=== PATIENT | male | born 1955 | race Caucasian/White ===

== ENCOUNTER → 2016-10-10 | Outpatient (CLI) | payer BC ==
[~2016-10-10] MED LIST: ACET-1138 PO; ASPEC81 PO; ASPI81TA28 PO; CALC0.02 TOP; CHOL100010 PO; CLB200 PO; CLC100 PO; IBUP-1050 PO; LIDOCAINE 5% TOP; MACUHEALTH PO; MULT-506 PO; MULT-920 PO; NASAL SPRAY NAE; OXYSR10 PO; RXC5 PO; SIMV40TA2 PO; VOLTAREN GEL TOP; [UNRECOGNIZED DRUG - CODE] TOP; [UNRECOGNIZED DRUG - OTHER] TOP; [UNRECOGNIZED DRUG - OTHER] TOP
--- NOTE | 2016-10-10 15:08 | DIAGNOSTIC IMAGING REPORT ---
CT UPPER EXTREMITY WITHOUT CT DOSE: 864.50 mGy.cm CLINICAL HISTORY: RT SHOULDER PAIN TECHNIQUE: Helical images were acquired in the transverse plane. Sagittal and coronal reformatted images were acquired. COMPARISON STUDY: None. FINDINGS: There are advanced osteoarthritic changes present within the right shoulder. There is marked narrowing of the glenohumeral joint. There are prominent osteophytes present. There are multiple subchondral cysts present. There is a dominant 23 mm cyst located within the superior lateral margin of the humeral head. No acute fractures are visualized. There are no subluxations. There is a 2.5 mm right apical pulmonary nodule, finding of doubtful clinical significance. There is no pathologic adenopathy. There is a [id number] joint effusion. IMPRESSION: 1. Advanced osteoarthritic change with marked joint space narrowing, prominent osteophytes, and subchondral cyst formation. There is also a small amount of joint effusion 2. No acute fractures. Electronically signed by: Pedro Mercado M.D. 10/10/2016 3:07 PM Dictated Date/Time: 10/10/2016 3:00 PM
== END | disposition home or self-care (01) ==
LOC: C.CTS 14:35
PROVIDERS: ATTEND Orthopaedic Surgery
DX: M19.011 Primary osteoarthritis, right shoulder (principal); M25.511 Pain in right shoulder

== ENCOUNTER 2016-11-01 09:04 | Inpatient (IN) | payer BC ==
[2016-10-10 13:16] VITALS: BMI 29.0
--- NOTE | 2016-10-10 13:58 | PAT Medication Instructions ---
Service Date Oct 10, 2016. Current Home Medication List Aspirin (Aspirin Ec), 81 MG PO Q2D Calcipotriene-Betamethasone Di (Calcipotriene/Betamethaso 0.005-0.064 %), 1 DOSE TOP PRN Cholecalciferol (Vitamin D), 1,000 INTER.UNIT PO QAM Ibuprofen (Advil), 200 MG PO BID Multivitamin (Multivitamin), 1 TAB PO QAM Simvastatin (Zocor), 40 MG PO HS [Lidocaine 5 %], 1 DOSE TOP PRN [[facility]], 1 TAB PO QPM [Nasal [place]], 1 DOSE ELYSE PRN [Topical Cr], 1 DOSE TOP PRN [Voltaren Gel], 1 DOSE TOP PRN Medication Instructions For Your Scheduled Surgery - Hold the following medications 7 days prior to surgery per surgeon's instructions: Ibuprofen (Advil), 200 MG PO BID Aspirin (Aspirin Ec), 81 MG PO Q2D - Hold the following medications 24 hours prior to surgery: Calcipotriene-Betamethasone Di (Calcipotriene/Betamethaso 0.005-0.064 %), 1 DOSE TOP PRN [Voltaren Gel], 1 DOSE TOP PRN [Lidocaine 5 %], 1 DOSE TOP PRN [Topical Cr], 1 DOSE TOP PRN - Hold the following medications the morning of surgery: Cholecalciferol (Vitamin D), 1,000 INTER.UNIT PO QAM Multivitamin (Multivitamin), 1 TAB PO QAM - Take the following medications the morning of surgery if needed: [Nasal [place]], 1 DOSE ELYSE PRN - Take the following medications as scheduled the night before surgery: Simvastatin (Zocor), 40 MG PO HS [[facility]], 1 TAB PO QPM Nothing to eat or drink after midnight If you have any questions please call us at [phone] or [phone] or [phone]
[2016-10-10 14:33] LABS: BASO % 0.1 %; BASO ABS # 0.01 K/uL (0-0.2); COMPLETE YES; EOS % 0.9 %; HEMATOCRIT 50.5 % (42-52); IG% 0.3 %; LYMPH % 34.4 %; MEAN CELL VOLUME 88.4 fL (80-100); MEAN CORPUSCULAR HEMOGLOBIN 27.8 pg (25-34); MEAN CORPUSCULAR HGB CONC 31.5 g/dl (32-36); MEAN PLATELET VOLUME 10.4 fL (7.4-10.4); MONO % 5.4 %; NEUT % 58.9 %; PLATELET COUNT 195 K/uL (130-400); RED BLOOD COUNT 5.71 M/uL (4.7-6.1); WHITE BLOOD COUNT 7.84 K/uL (4.8-10.8)
[2016-10-10 14:41] LABS: PROTHROMBIN TIME (PATIENT) 10.3 SECONDS (9.0-12.0)
[2016-10-10 14:49] LABS: URINE APPEARANCE CLEAR (CLEAR); URINE BILIRUBIN NEG (NEG); URINE COLOR DK YELLOW; URINE NITRITE NEG (NEG); URINE PH 5.5 (4.5-7.5); URINE SPECIFIC GRAVITY 1.028 (1.000-1.030); UROBILINOGEN NEG (NEG)
[2016-10-10 14:57] LABS: MANUAL MICROSCOPIC REQUIRED? NO; REVIEW REQ? NO
--- NOTE | 2016-10-10 15:05 | DIAGNOSTIC IMAGING REPORT ---
CHEST PREADMISSION(PA/LAT) CLINICAL HISTORY: Preoperative evaluation. COMPARISON STUDY: Chest radiograph August 22, 2015. FINDINGS: Lung volumes are normal. There is no pneumothorax or pleural effusion. Pulmonary vascularity is normal. Minimal opacity along the left heart border suggest atelectasis or epicardial fat pad. This is unchanged. Severe osteoarthritis of the right glenohumeral joint is noted. IMPRESSION: No acute cardiopulmonary findings. Electronically signed by: Melquiades Toussaint M.D. 10/10/2016 3:04 PM Dictated Date/Time: 10/10/2016 2:38 PM
[2016-10-10 15:51] LABS: BUN/CREATININE RATIO 17.6 (10-20); CALCIUM 9.1 mg/dl (8.5-10.1); CREATININE 0.92 mg/dl (0.60-1.40); POTASSIUM 4.9 mmol/L (3.5-5.1)
[2016-10-11 05:49] LABS: ESTIMATED AVERAGE GLUCOSE 134 mg/dl; HA1C FLAG Normal (Normal)
--- NOTE | 2016-10-28 11:29 | HISTORY & PHYSICAL EXAMINATION ---
DATE OF ADMISSION: 11/01/2016 SUBJECTIVE AND CHIEF COMPLAINT: Right shoulder pain. HISTORY OF PRESENT ILLNESS: The patient is a 61-year-old male who complains of right shoulder pain. States that the symptoms have been chronic and nontraumatic in nature. He describes them as aching, sharp and throbbing. He has been previously treated with cortisone injections with no relief. He has had no success with physical therapy. He would like to proceed with a surgical procedure. PAST MEDICAL HISTORY: Significant for hypercholesterolemia and osteoarthritis. PAST SURGICAL HISTORY: Left TKA, right TKA, tonsillectomy, adenoidectomy. SOCIAL HISTORY: Denies alcohol use. Denies smoking or tobacco use. Denies IV or illegal drug use. He lives in a 2-story house. 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 FAMILY HISTORY: Noncontributory. ALLERGIES: No known drug allergies. MEDICATIONS: Voltaren 1% gel as directed; Advil 200 mg 1 tablet in the morning and 1 tablet at night; lidocaine 5% extended patch use for painful area on the shoulder, on for 12 hours and off for 12 hours 1 patch per day; albuterol 2 puffs every 6 hours as needed; vitamin D3 1000 units 1 tab daily; aspirin 81 mg 1 tab every other day; simvastatin 40 mg 1 tab at bedtime. REVIEW OF SYSTEMS: He denies headaches, fevers, chills, double vision, blurry vision, sore throat, cough, chest pain, nausea, vomiting, diarrhea, constipation, numbness, tingling, tired, urinary difficulties, thoughts of harming himself or harming others, or depression. He is positive for joint pain and joint stiffness of the right shoulder. OBJECTIVE: GENERAL APPEARANCE: The patient is a 61-year-old male, sitting, in no acute distress. He is well dressed, well nourished. He is awake, alert and oriented x3. VITAL SIGNS: He is 5 feet 10 inches tall, 202 pounds. Blood pressure is 138/84. HEENT: Normocephalic, atraumatic. Extraocular movements are intact. PERRLA. Mucosa is moist. No septal deviation. NECK: Supple with no lymphadenopathy, no JVD, no thyromegaly. HEART: Regular rate and rhythm with no murmurs or gallops. LUNGS: Clear to auscultation. No wheezing or rhonchi. ABDOMEN: Soft, nontender, nondistended. Normal bowel sounds. No hepatosplenomegaly. EXTREMITIES: Paying particular attention to the right upper extremity, he is able to actively flex 0-120 degrees, abduct 0-90 degrees, externally rotate 0-20 degrees. Crepitus is felt along the shoulder joint through his range of motion and he has pain at terminal end range of motion. NEUROLOGIC: Cranial nerves II-XII are intact. Pulses are compared bilaterally and are equal. IMAGING: X-rays of the right shoulder demonstrated [id number] of the glenohumeral joint with osteophyte formation. IMPRESSION: Right shoulder arthritis [id number] with significant medialization and posterior wear. PLAN: The patient is scheduled for a right TSA versus reverse TSA with possible augmentation of the glenoid. The patient has failed conservative therapies of cortisone injections and physical therapy. This affects his activities of daily living. He would like to proceed with the surgical procedure. The patient will be scheduled for a TSA versus reverse with possible augmentation of the glenoid. Risks and benefits to the surgery were discussed which included but not limited to DVT, pain, stiffness, need for revision surgeries, damage to blood vessels, damage to nerves, PE, , and anesthesia risks were all discussed with the patient and he wishes to proceed. All questions were answered to his satisfaction. DVT prophylaxis is nonapplicable, and on discharge, he would like to go home with outpatient physical therapy. PILO
[~2016-11-01] VITALS: Ht 177.8 cm; Wt 92.5 kg
[2016-11-01] VITALS (9 sets, daily range): BP systolic 127–158; BP diastolic 75–87; PULSE 68–90; TEMP 36.5–36.8; O2SAT 94–98; Ht 177.8 cm; Wt 92.5 kg
[2016-11-01] MEDS: TRANEXAMIC ACID INJ 1,000 MG in SODIUM CHLORIDE 0.9% 100ML 100 ML IV SCH ×2 (06:00→06:30)
[~2016-11-01 09:04] MED LIST changes: -ACET-1138 PO; +ACETAMINOPHEN 500 MG TAB PO SCH; -ASPEC81 PO; +BUPIVACAINE/EPINEPHRINE 0.25% 1:200,000 30 ML VIAL ONE; +CEFAZOLIN 2000 MG/60 ML D5W 60 ML IV SCH; -CLB200 PO; -CLC100 PO; +CeleBREX 200 MG CAP PO SCH; +DEXAMETHASONE 4 MG TAB PO SCH; +DEXAMETHASONE SOD INJ 4 MG/ML VIAL ONE; +FAMOTIDINE 20 MG TAB PO SCH; +GABAPENTIN 300 MG CAP PO SCH; +LACTATED RINGER'S 1000ML 1,000 ML IV SCH; +METOCLOPRAMIDE HCL 10 MG TAB PO SCH; -MULT-920 PO; -OXYSR10 PO; +ROPIVACAINE 5MG/ML 30 ML 150 MG, BUPIVACAINE/EPINEPHR 0.5% MPF 30 ML, KETOROLAC TROMETH... INFIL SCH; -RXC5 PO; -[UNRECOGNIZED DRUG - CODE] TOP; -[UNRECOGNIZED DRUG - OTHER] TOP
--- NOTE | 2016-11-01 09:27 | History & Physical Bridge Note ---
H&P Re-Evaluation Bridge Note: I have examined the patient, reviewed the History & Physical and in the interval since the performance of the History & Physical I have noted the following changes of clinical significance: No changes noted
[2016-11-01] MEDS ORDERED: MIDAZOLAM HCL 1 MG/ML 2ML VIAL ONE (10:35)
[2016-11-01] MEDS ORDERED: FENTANYL CITRATE INJ 50 MCG/1 ML 2 ML VIAL ONE (10:35)
[2016-11-01] MEDS ORDERED: ROCURONIUM BROMIDE 10 MG/ML 5 ML VIAL ONE (10:36)
[2016-11-01] MEDS ORDERED: LIDOCAINE HCL 2% 2 ML VIAL (20MG/ML) ONE ×2 (10:36→12:30)
[2016-11-01] MEDS ORDERED: PROPOFOL IV EMULSION 10 MG/ML 20 ML VIAL IV ONE (10:36)
[2016-11-01] MEDS ORDERED: ONDANSETRON INJ 2 MG/ML 2 ML VIAL IV PRN ×2 (11:45→15:00)
[2016-11-01] MEDS ORDERED: FENTANYL CITRATE INJ 50 MCG/1 ML 2 ML VIAL IV PRN (11:45)
[2016-11-01] MEDS ORDERED: EpHEDrine SULFATE INJ 50 MG/ML AMP IV PRN (11:45)
[2016-11-01] MEDS ORDERED: ATROPINE SULFATE 0.1 MG/ML 5ML SYR IV PRN (11:45)
[2016-11-01] MEDS ORDERED: PROMETHAZINE HCL INJ 6.25 MG in SODIUM CHLORIDE 0.9% 50ML 50 ML IV PRN (11:45)
[2016-11-01] MEDS ORDERED: HYDROmorphone INJ 1 MG/ML SYR IV PRN (11:45)
[2016-11-01] MEDS ORDERED: BACITRACIN 50000 UNIT VIAL ONE (11:56)
[2016-11-01] MEDS ORDERED: POVIDONE-IODINE OP SOLN 30 ML BTL ONE (11:56)
[2016-11-01] MEDS ORDERED: ORTHO JOINT ANESTHETIC ONE (12:07)
[2016-11-01] MEDS ORDERED: VANCOMYCIN HCL 1000MG/20ML VIAL ONE (12:21)
[2016-11-01] MEDS ORDERED: THROMBIN 5000 UNITS KIT ONE (12:21)
[2016-11-01] MEDS ORDERED: GLYCOPYRROLATE INJ 0.2 MG/ML VIAL ONE (13:23)
[2016-11-01] MEDS ORDERED: NEOSTIGMINE METHYLSULFATE 5 MG/5 ML SYR ONE (13:23)
--- NOTE | 2016-11-01 14:48 | [facility] Post Operative Brief Note ---
Immediate Operative Summary Operative Date Nov 01, 2016. Pre-Operative Diagnosis Right Shoulder Degenerative Joint Disease with severe glenoid medialization Post-Operative Diagnosis Right Shoulder Degenerative Joint Disease Procedure(s) Performed Right Reverse Total Shoulder Arthroplasty--Uncemented Surgeon Dr. Carcamo Visual Designer Surgeon(s) SOREN Smith Estimated Blood Loss 50 ml Findings severe medial glenoid medialization, standard glenoid pegs would have perforated through the glenoid vault Specimens A. Portion of Right Humeral Head Drains 1 hemovac Anesthesia geta, spinal Complication(s) None Disposition Recovery Room / PACU
[2016-11-01] MEDS ORDERED: ZOLPIDEM TARTRATE 5 MG TAB PO PRN (15:00)
[2016-11-01] MEDS ORDERED: DICLOFENAC SOD 1% GEL 100 GM TUBE EXT PRN (15:00)
[2016-11-01] MEDS ORDERED: ALUMINUM/MAGNESIUM SUSP 30 ML UDC PO PRN (15:00)
[2016-11-01] MEDS ORDERED: [UNRECOGNIZED DRUG - OTHER] NAE SCH (15:00)
[2016-11-01] MEDS ORDERED: MAGNESIUM HYDROXIDE SUSP 30 ML UDC PO PRN (15:00)
[2016-11-01] MEDS ORDERED: [UNRECOGNIZED DRUG - OTHER] TOP SCH (15:00)
[2016-11-01] MEDS ORDERED: METOCLOPRAMIDE HCL INJ 5 MG/ML 2 ML VIAL IV PRN (15:00)
--- NOTE | 2016-11-01 16:08 | DIAGNOSTIC IMAGING REPORT ---
RIGHT SHOULDER MIN 2 VIEWS ROUTINE CLINICAL HISTORY: Post shoulder surgery Right COMPARISON: None. DISCUSSION: Total right shoulder arthroplasty. Good contact between prosthetic and underlying bone. Surgical drains are in position. Expected soft tissue postoperative change. IMPRESSION: Anatomic alignment status post total right shoulder arthroplasty. Electronically signed by: Yahir Forbes M.D. 11/01/2016 4:06 PM Dictated Date/Time: 11/01/2016 4:05 PM
--- NOTE | 2016-11-01 16:14 | Anesthesiology Progress Note ---
Anesthesia Post Op Note Date & Time Nov 01, 2016 at 16:14 Vital Signs Pain Intensity: 0 Vital Signs Past 12 Hours Date Time Temp Pulse Resp B/P (MAP) Pulse Ox O2 Delivery O2 Flow Rate FiO2 11/01/16 16:10 88 20 119/73 96 Nasal Cannula 2 11/01/16 16:00 88 20 142/79 96 Nasal Cannula 2 11/01/16 16:00 88 20 142/79 96 Nasal Cannula 2 11/01/16 15:50 87 21 117/75 98 Nasal Cannula 2 11/01/16 15:40 76 16 116/67 98 Nasal Cannula 2 11/01/16 15:30 66 16 102/58 98 Mask 10 11/01/16 15:21 36.5 64 16 122/63 98 Mask 10 11/01/16 11:31 71 16 141/77 (98) 99 Mask 10 11/01/16 09:30 36.8 68 18 155/87 (109) 98 Room Air Notes Mental Status: alert / awake / arousable, participated in evaluation Pt Amnestic to Procedure: Yes Nausea / Vomiting: adequately controlled Pain: adequately controlled Airway Patency, RR, SpO2: stable & adequate BP & HR: stable & adequate Hydration State: stable & adequate Anesthetic Complications: no major complications apparent
[2016-11-01] MEDS ORDERED: LIDOCAINE HCL 5% OINT 30 GM TUBE EXT PRN (17:15)
[2016-11-01] MEDS: D5W AND 1/2NSS + 20MEQ KCL 1,000 ML IV SCH (17:42)
[2016-11-01] MEDS: OXYCODONE HCL IR 5 MG TAB (IMMEDIATE RELEASE) PO PRN (17:58)
[2016-11-01] MEDS: FERROUS GLUCONATE 324 MG TAB PO SCH (17:58)
--- NOTE | 2016-11-01 19:04 | OPERATIVE REPORT ---
DATE OF OPERATION: 11/01/2016 PREOPERATIVE DIAGNOSIS: Right shoulder degenerative joint disease with significant medialization of the glenoid and significant glenoid wear. POSTOPERATIVE DIAGNOSIS: Same. PROCEDURE: Right reverse total shoulder arthroplasty. SURGEON: Dr. Carcamo. SOLAR PANEL INSTALLER: Sawyer Kong PA-C who was necessary for assistance with the procedure with positioning, prepping, draping, retraction and closure. ANESTHESIA: General endotracheal anesthesia with interscalene block. SPECIMEN: Bone and tissue. COMPLICATIONS: None. DRAINS: One medium Hemovac. ESTIMATED BLOOD LOSS: 50 mL. IMPLANTS: Exactech Equinoxe 13 mm stem, +0 humeral tray, 42 mm glenosphere +2.5 mm humeral liner, standard glenoid plate. INDICATIONS: The patient is a 61-year-old male with longstanding pain in the right shoulder. He is significantly medialized and the shoulder with fairly severe bony glenoid wear down to the base of the coracoid. Given the amount of bony glenoid wear, we discussed possibility of the need to proceed with a reversed total shoulder to be able to get better fixation into the glenoid. My concern based on his preoperative imaging including his CT scan is that the peripheral pegs for a standard polyethylene glenoid would perforate through the glenoid face and not get appropriate fixation. We discussed that if his rotator cuff was in good shape and I thought we could get a stable polyethylene glenoid we would proceed with an anatomic total shoulder, but if the rotator cuff tissue was poor and/or if the glenoid bone was insufficient, I may proceed with a reversed total shoulder to achieve better fixation. Risks, benefits, and alternatives of surgery including but not limited to infection, DVT, pain, stiffness, need for urgent surgery, failure to relieve all symptoms, damage to blood vessels, damage to nerves, risks of anesthesia were discussed with the patient and he wished to proceed. DESCRIPTION OF PROCEDURE: The patient was identified, laterality was confirmed and marked. He received a preoperative antibiotic as well as an interscalene block. He was transferred to the operating room, placed in the supine position, induced in general endotracheal anesthesia. He was then safely transferred to a beach chair type position. The right shoulder was prepped and draped in the usual sterile manner with ChloraPrep. The arm was secured in the spider positioner. A medial longitudinal incision just lateral towards the coracoid, sharply incising through the skin, utilizing Bovie electrocautery to achieve hemostasis. I made a deltopectoral approach to the shoulder, mobilizing the cephalic vein laterally with the deltoid, mobilized the conjoined tendon and dissected down to the shoulder. I elevated subscapularis in a peel type fashion and tagged it with interrupted Ethibond suture. I then pinned into place a humeral head version cutting guide, made my humeral head resection. He had exceedingly large cyst in the posterior and superior humeral head extended underneath the insertion of the supraspinatus and infraspinatus. I sequentially reamed and sequentially broached up to a size 13. Placed the trial 11 stem into the humerus. I then placed retractors about the glenoid, performed a capsular release and excised the glenoid labrum. He had again significant medialization and central bone loss down to the base of the coracoid. Palpating around inferiorly as well as anteriorly and superiorly and posteriorly as well, my concern was that where the glenoid pegs would be placed, we would perforate through the glenoid and not get appropriate fixation and we will likely get extravasation of the cement out through the drill holes for the pegs, so I elected to proceed with a reverse total shoulder. I debrided the glenoid vault with a curette to establish a good bleeding response and then with the drill guide, drilled essentially for the central post. The standard glenoid plate was bone grafted with bone taken from the humeral head. I then impacted the glenoid plate into position. I then placed a total of 4 compression screws aiming up more centrally into the central portion of the glenoid to try and avoid perforation of the glenoid. I think we got a little bit of perforation on the anterior inferior screw, but we had good compression and good solid bite in this region. There was total of 4 compression screws placed. They were then secured with locking caps. I then utilized a size 42 glenosphere to try and re-lateralize the shoulder, positioned this in place and then secured it with a set screw. I then returned my attention back to the humerus. I removed the trial humeral stem and impacted my definitive 13 mm stem. I then placed a trial into position. We were a little loose with a +0, I placed a +2.5 mm liner into position, this had a much better stability, gave better soft tissue tension. All the trial components were removed. The wound was thoroughly irrigated. The deep tissues were anesthetized with an ortho mix solution as well as the posterior capsule and remaining rotator cuff. The bone cyst was then packed with autograft taken from the humeral head. I then placed the +0 definitive humeral liner into position and locked it with a torque-limiting screw and then I impacted the definitive +2.5 mm humeral liner for 42 mm glenosphere, impacted this into position and then reduced the shoulder. We had a good range of motion, good soft tissue tensioning, no impingement with range of motion. Wound was thoroughly irrigated. The deltopectoral interval was closed over a deep drain with interrupted #1 Ethibond suture, subcutaneous tissue with interrupted 2-0 Vicryl suture and skin with rancho. Sterile dressing was applied and sling placed. All needle and sponge counts were correct at the end of the procedure. The patient was transferred to the PACU in stable condition without apparent complication. I attest to the content of the Intraoperative Record and any orders documented therein. Any exceptions are noted below. PILO
[2016-11-01] MEDS: KETOROLAC TROMETHAMINE 30 MG/ML VIAL IV. SCH ×2 (19:05→23:36)
[2016-11-01] MEDS: CEFAZOLIN IV 2,000 MG in DEXTROSE 5% 50ML 50 ML IV SCH (19:06)
[2016-11-01] MEDS: PREGABALIN 75 MG CAP PO SCH (20:47)
[2016-11-01] MEDS: OXYCODONE HCL 10 MG TABCR (OXYCONTIN) PO SCH (20:48)
--- NOTE | 2016-11-01 20:51 | Discharge Instructions ---
Discharge Instructions Date of Service Nov 01, 2016. Admission Reason for Admission: Primary Osteoarthritis, Right Shoulder Discharge Discharge Diagnosis / Problem: S/P reverse Total shoulder arthroplasty Discharge Goals Goal(s): Decrease discomfort, Improve function Activity Recommendations Activity Limitations: per Instructions/Follow-up section . Instructions / Follow-Up Instructions / Follow-Up ACTIVITY RECOMMENDATIONS: SELF CARE INSTRUCTIONS AFTER TOTAL SHOULDER ARTHROPLASTY REVERSE A. You may do daily exercises as taught in physical therapy while in hospital. No lifting with the operative arm. B. You are to wear your sling/immobilizer at all times EXCEPT when performing your daily exercises and for hygiene purposes. C. YOU WILL HAVE A SILVERLON DRESSING ON. KEEP THIS ON FOR 7 DAYS. You may then perform dry, daily dressing changes. Please keep your incision covered. You may shower 48 hours after surgery. Do not apply soap or any ointment/ lotions directly over incision. Do not soak incision in bath tub/swimming pool. D. You may use ice as needed to operative shoulder. E. Start PT after your surgery. PT script should be provided for you. 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 SPECIAL CARE INSTRUCTIONS: VERY IMPORTANT TO READ AND REVIEW A. There are a few signs you need to watch for after you are home. Call [facility] at [phone] if you experience any of the followin. Increased severe shoulder pain. Some pain is expected especially when you exercise. 2. Increased swelling in you shoulder or arm; pain or swelling in either upper extremity. 3. Any fluid drainage from the incision. 4. Shortness of breath or chest pain. B. Please call [facility] at [phone] if you have any questions or concerns about your operation or recovery. C. Call your physician if: 1. Temperature is greater than 101 degrees (F). 2. Pain is not relieved by prescribed pain medications. 3. Increase drainage or redness from incision. 4. Unanswered questions or concerns. FOLLOW UP VISIT: Please call [facility] at [phone] to schedule a follow up appointment with Dr. Carcamo or his PA in 12-14 days from your surgery date. Current Hospital Diet Patient's current hospital diet: Regular Diet Discharge Diet Recommended Diet: Regular Diet Procedures Procedures Performed: Right Reverse Total Shoulder Arthroplasty--Uncemented Pending Studies Studies pending at discharge: no Laboratory Results Hemoglobin A1c Test 10/10/16 14:10 Range/Units Estimated Average Glucose 134 mg/dl Hemoglobin A1c 6.3 H 4.5-5.6 % Medical Emergencies . Who to Call and When: Medical Emergencies: If at any time you feel your situation is an emergency, please call 911 immediately. . Non-Emergent Contact Non-Emergency issues call your: Surgeon . "Provider Documentation" section prepared by Sawyer Kong. . VTE Core Measure Inpt VTE Proph given/why not?: Treatment not indicated [place] Drug Monitoring Program Search Results: patient reviewed within database, no issues identified
[2016-11-01] MEDS ORDERED: SIMVASTATIN 40 MG TAB PO SCH (21:00)
[2016-11-01] MEDS ORDERED: MACUHEALTH PO SCH (21:00)
[2016-11-01] MEDS: ACETAMINOPHEN 500 MG TAB PO SCH (21:35)
[2016-11-02] MEDS: D5W AND 1/2NSS + 20MEQ KCL 1,000 ML IV SCH (01:57)
[2016-11-02] MEDS: CEFAZOLIN IV 2,000 MG in DEXTROSE 5% 50ML 50 ML IV SCH (01:57)
[2016-11-02 04:00] VITALS: BP 118/68; PULSE 77; TEMP 36.5; O2SAT 97
[2016-11-02] MEDS: KETOROLAC TROMETHAMINE 30 MG/ML VIAL IV. SCH ×2 (05:57→11:11)
[2016-11-02 05:58] LABS: HEMATOCRIT 41.6 % (42-52); MEAN CELL VOLUME 87.6 fL (80-100); MEAN CORPUSCULAR HEMOGLOBIN 28.6 pg (25-34); MEAN CORPUSCULAR HGB CONC 32.7 g/dl (32-36); MEAN PLATELET VOLUME 10.7 fL (7.4-10.4); PLATELET COUNT 189 K/uL (130-400); RED BLOOD COUNT 4.75 M/uL (4.7-6.1); WHITE BLOOD COUNT 11.88 K/uL (4.8-10.8)
[2016-11-02] MEDS: ACETAMINOPHEN 500 MG TAB PO SCH (05:58)
[2016-11-02 06:24] LABS: BUN/CREATININE RATIO 13.2 (10-20); CALCIUM 8.4 mg/dl (8.5-10.1); POTASSIUM 4.1 mmol/L (3.5-5.1)
[2016-11-02 08:03] VITALS: BP 144/68; PULSE 77; TEMP 36.4; O2SAT 97
[2016-11-02] MEDS: FERROUS GLUCONATE 324 MG TAB PO SCH (08:42)
[2016-11-02] MEDS: OXYCODONE HCL 10 MG TABCR (OXYCONTIN) PO SCH (08:46)
[2016-11-02] MEDS: PREGABALIN 75 MG CAP PO SCH (08:46)
[2016-11-02] MEDS ORDERED: PANTOprazole SOD 40 MG TAB PO SCH (09:00)
[2016-11-02] MEDS ORDERED: CHOLECALCIFEROL 1000 INTER.UNIT TAB PO SCH (09:00)
[2016-11-02] MEDS ORDERED: MULTIVITAMIN TAB PO SCH ×2 (09:00)
--- NOTE | 2016-11-02 09:26 | Orthopedic Progress Note ---
Orthopedic Progress Note Date of Service Nov 02, 2016. Subjective Post OP Day: 1 Reports: feeling well, pain controlled w PO medications, Denies: complaints, chest pain, SOB Objective N/V intact, capillary refill less than 2 sec., dressing C/D/I, A&O x3, hemovac drainage (175 cc ) RUE in sling Right hand fingers are mobile. Date Time Temp Pulse Resp B/P (MAP) Pulse Ox O2 Delivery O2 Flow Rate FiO2 11/02/16 08:03 36.4 77 16 144/68 (93) 97 Room Air 11/02/16 07:40 Room Air 11/02/16 04:00 36.5 77 16 118/68 (85) 97 Room Air 11/01/16 23:46 Room Air 11/01/16 23:20 36.7 90 16 133/78 (96) 95 Room Air 11/01/16 21:19 36.5 76 16 127/75 (92) 96 Room Air 11/01/16 19:56 36.7 78 16 138/77 (97) 95 Room Air 11/01/16 19:19 36.5 81 16 158/76 (103) 96 Nasal Cannula 2.0 11/01/16 18:45 36.5 76 16 156/81 (106) 98 Nasal Cannula 2.0 11/01/16 17:49 36.5 75 16 152/84 (106) 98 Nasal Cannula 2.0 11/01/16 17:19 36.6 78 16 133/79 (97) 97 Nasal Cannula 2.0 11/01/16 16:45 36.8 83 17 133/77 (95) 94 Nasal Cannula 2.0 11/01/16 16:45 94 Nasal Cannula 2.0 11/01/16 16:45 Nasal Cannula 2.0 11/01/16 16:15 36.6 84 20 122/82 97 Nasal Cannula 2 11/01/16 16:10 88 20 119/73 96 Nasal Cannula 2 11/01/16 16:00 88 20 142/79 96 Nasal Cannula 2 11/01/16 16:00 88 20 142/79 96 Nasal Cannula 2 11/01/16 15:50 87 21 117/75 98 Nasal Cannula 2 11/01/16 15:40 76 16 116/67 98 Nasal Cannula 2 11/01/16 15:30 66 16 102/58 98 Mask 10 11/01/16 15:21 36.5 64 16 122/63 98 Mask 10 11/01/16 11:31 71 16 141/77 (98) 99 Mask 10 11/01/16 09:30 36.8 68 18 155/87 (109) 98 Room Air Laboratory Results 24 Hours: Test 11/02/16 05:34 Hematocrit 41.6 % Hemoglobin 13.6 g/dL Assessment & Plan Assessment: POD #1 s/p Right reversed total shoulder arthroplasty Plan: D/C hemovac today D/C home today Inhouse Planning Pain Management: Toradol, Oxycontin, Oxy IR Discharge Planning Discharge Planning: home Pain Management: Oxycontin, Oxy IR
[2016-11-02] MEDS ORDERED: OXYSR10 PO (09:27)
[2016-11-02] MEDS ORDERED: RXC5 PO (09:27)
[2016-11-02 10:12] VITALS: BP 144/68; PULSE 77; TEMP 36.4; O2SAT 97
[2016-11-02] MEDS: OXYCODONE HCL IR 5 MG TAB (IMMEDIATE RELEASE) PO PRN (11:12)
[2016-11-02] MEDS ORDERED: CeleBREX 200 MG CAP PO SCH (21:00)
[2016-11-02] MEDS ORDERED: ASPIRIN 81 MG ECTAB PO SCH (21:00)
--- NOTE | 2016-11-10 16:27 | Discharge Summary ---
Orthopedic Discharge Summary Admission Date/Reason Nov 01, 2016 at 09:30 Primary Osteoarthritis, Right Shoulder. Discharge Date/Disposition Nov 02, 2016 Home Diagnosis Principal Diagnosis: Primary osteoarthritis of Right Shoulder with severe medialization of the glenoid Procedure(s) Performed On November 01 2016 Patient underwent a Right Reverse Total Shoulder Arthroplasty Consultations None Medication Reconciliation Please refer to the electronic Patient Visit Report (Discharge Instructions) for additional information. Admission Physical Exam As per Admitting History & Physical. Hospital Course On November 01 2016, patient underwent a Right reverse TSA. On POD#1 patient was feeling well with no complaints. His pain was controlled with PO medication. His arm was resting comfortably in a sling and bandage was Clean, dry and intact. He would be scheduled to be discharge that day home with out patient PT. Discharge Instructions Please refer to the electronic Patient Visit Report (Discharge Instructions) for additional information.
== END 2016-11-02 11:57 | disposition home or self-care (01) | DRG 483 ==
LOC: C.ACU 09:04 → C.3E 09:30 → ENRESERV 16:08
PROVIDERS: ADMIT Orthopaedic Surgery; ATTEND Orthopaedic Surgery
PROC: 0RRJ00Z Replacement of Right Shoulder Joint with Reverse Ball and Socket Synthetic Substitute, Open Approach (ICD-10-PCS; principal; 2016-11-01 11:45)
DX: M19.011 Primary osteoarthritis, right shoulder (principal); E78.00 Pure hypercholesterolemia, unspecified; Z96.653 Presence of artificial knee joint, bilateral; Z79.82 Long term (current) use of aspirin; Z79.899 Other long term (current) drug therapy